=== PATIENT | male | born 2000 | race Two or more races ===

== ENCOUNTER 2024-06-22 19:47 | Emergency (ER) | payer OTHER ==
[~2024-06-22] VITALS: Ht 180.3 cm; Wt 95.3 kg
[2024-06-22] MEDS ORDERED: ADDERALL 5 MG TA5 MG PO (20:47)
[2024-06-22] MEDS ORDERED: LIDOCAINE HCL 1% 10ML VIAL ONE (21:35)
== END 2024-06-22 22:16 | disposition home or self-care (01) ==
LOC: ER 20:14
DX: S01.82XA Laceration with foreign body of other part of head, initial encounter (principal); W05.1XXA Fall from non-moving nonmotorized scooter, initial encounter; Y93.I9 Activity, other involving external motion; Y92.89 Other specified places as the place of occurrence of the external cause